=== PATIENT | male | born 1970 | race Caucasian/White ===

== ENCOUNTER → 2022-01-25 | Outpatient (CLI) | payer OTHER ==
[~2022-01-25] MED LIST: CEFUROXIME500 MG PO; IBUPROFEN800 MG PO; LOVENOX SY40 MG/0.4 SQ; NAPROXEN500 MG PO; NORCO 5-325 TA1 EACH PO; PERCOCET 5-3251 EACH PO; PRILOSEC OTC20 MG PO; PROZAC20 MG PO; TORADOL 10 MG T10 MG PO
== END ==
LOC: KOH-I 10:47
DX: M25.562 Pain in left knee (principal); M17.12 Unilateral primary osteoarthritis, left knee
CPT/HCPCS: 73562

== ENCOUNTER → 2022-04-11 | Outpatient (CLI) | payer OTHER | LOC: KOH-I 13:34 | DX: R22.42 Localized swelling, mass and lump, left lower limb (principal) | CPT/HCPCS: 93971 ==